=== PATIENT | male | born 1985 | race Caucasian/White ===

== ENCOUNTER 2020-04-19 09:23 | Emergency (ER) | payer BC, OTHER ==
[2020-04-19 09:51] LABS: #Basophils 0.1 thou/uL (0.0-0.2); #Eosinphils 0.1 thou/uL (0.0-0.7); #Lymphocytes 1.6 thou/uL (1.20-3.40); #Monocytes 0.7 thou/uL (0.11-0.59); #Neutrophils 3.3 thou/uL (1.40-6.50); %Eosinophils 1.9 % (0.0-10.0); %Lymphocytes 27.7 % (21.0-51.0); %Monocytes 11.3 % (0.0-10.0); %Neutrophils 57.1 % (42.0-75.0); Hemoglobin 16.6 g/dL (14.0-18.0); Mean Corpuscular HGB CONC 33.3 g/dL (32.0-36.0); Mean Corpuscular Hemoglobin 30.2 pg (27.0-31.0); Mean Corpuscular Volume 90.5 fL (78.0-98.0); Mean Platelet Volume 8.4 fL (7.4-10.4); Platelet Count 253 thou/uL (130-400); RBC Distribution Width 10.9 % (11.5-14.5); Red Blood Cell (RBC) Count 5.51 mill/uL (4.70-6.10); White Blood Cell (WBC) Count 5.9 thou/uL (4.8-10.8)
[2020-04-19 10:06] LABS: Anion Gap 16 mmol/L (10-20); BUN (Urea Nitrogen) 18 mg/dL (8.9-20.6); Calc. Creatinine Clearance 0 mL/min (70-130); Calcium 9.2 mg/dL (7.8-10.44); Carbon Dioxide 23 mmol/L (22-29); Chloride 105 mmol/L (98-107); Estimated GFR-MDRD 80; Glucose 100 mg/dL (70-105); Potassium 3.9 mmol/L (3.5-5.1); Sodium 140 mmol/L (136-145); Uric Acid 8.6 mg/dL (3.5-7.2)
[2020-04-19] MEDS ORDERED: Ketorolac Tromethamine 30 MG/ML VIAL ONE (10:16)
--- NOTE | 2020-04-19 16:32 | RAD ---
RIGHT KNEE 4 VIEWS: Date: 04/19/2020 No fracture was seen. No joint effusion was present. The articular surfaces were normal in appearance . IMPRESSION: No significant finding. POS: HOME
== END 2020-04-19 10:24 | disposition home or self-care (01) ==
LOC: BURERS 09:23
DX: M10.9 Gout, unspecified (principal)
CPT/HCPCS: 36415; 80048; 84550; 85025; 96372; J1885

== ENCOUNTER 2022-01-17 11:22 | Emergency (ER) | payer BC, OTHER | END 2022-01-17 12:28 | disposition home or self-care (01) | LOC: BURERS 11:22 | DX: M10.9 Gout, unspecified (principal) | CPT/HCPCS: 99283 ==